=== PATIENT | female | born 1975 | race Hispanic/Latino ===

== ENCOUNTER 2019-04-26 15:12 | Emergency (ER) | payer SELFPAY ==
--- NOTE | 2019-04-26 16:00 | CT ---
CT Brain WO Con History: Injury. Fall. Comparison: None. Findings: No acute hemorrhage or infarct. No midline shift or mass effect. Ventricular size and extra -axial CSF spaces are normal. The calvarium is intact. Paranasal sinuses and mastoids are clear. Impression: No acute intracranial abnormality. Small left frontal soft tissue scalp contusion.
[2019-04-26] MEDS ORDERED: Acetaminophen 325 MG TAB ONE (16:02)
--- NOTE | 2019-04-26 16:06 | CT ---
CT CERVICAL SPINE WITHOUT CONTRAST: 04/26/19 HISTORY: Pain. Injury. Status post fall. FINDINGS: Straightening of the normal cervical lordosis may be due to patient position, muscle spasm or cervica l collar. Current study is not tailored to assess for ligamentous injury. No craniocervical dissocia tion. Lateral masses of C1 and C2 articulate appropriately. Intact odontoid process. Appropriate articulati on of the facets. Cervical spine vertebral body height is maintained. No fracture. Varying degrees of central canal stenosis and neural foraminal narrowing on the basis of degenerative change. However, no evidence of high grade central canal stenosis or high grade foraminal narrowing. Evaluation is limited by technique. Soft tissue neck structures, upper mediastinum, and lung apices are unremarkable. IMPRESSION: 1. No fracture. 2. Straightening of the normal cervical lordosis as above. If there is concern for ligamentous i njury, consider MRI. POS: OFF
== END 2019-04-26 16:44 | disposition home or self-care (01) ==
LOC: ERS 15:12
DX: S00.03XA Contusion of scalp, initial encounter (principal); W01.10XA Fall on same level from slipping, tripping and stumbling with subsequent striking against unspecified object, initial encounter
CPT/HCPCS: 70450; 72125

== ENCOUNTER 2020-06-14 10:26 | Emergency (ER) | payer OTHER ==
[2020-06-14 17:49] LABS: SARS-CoV-2 MS2 Positive; SARS-CoV-2 N Gene Negative; SARS-CoV-2 S Gene Negative; SARS-CoV-2 by NAA Not Detected (NotDetected); SARS-CoV-2 orf1ab Negative
== END 2020-06-14 10:48 | disposition home or self-care (01) ==
LOC: ERS 10:26
DX: R05 Cough (principal); Z20.828 Contact with and (suspected) exposure to other viral communicable diseases
CPT/HCPCS: 87635; 99283; U0003

== ENCOUNTER 2021-08-17 16:39 | Emergency (ER) | payer OTHER ==
[2021-08-17] MEDS ORDERED: Mag-Al 1200 mg/1200 mg/30 ML UDCUP ONE (17:31)
[2021-08-17] MEDS ORDERED: Lidocaine Viscous Sol 2% 15 ml UD Cup ONE (17:31)
[2021-08-17] MEDS ORDERED: Aspirin Chewable 81 MG TAB ONE (17:31)
[2021-08-17 17:36] LABS: #Basophils 0.1 thou/uL (0.0-0.2); #Eosinphils 0.5 thou/uL (0.0-0.7); #Lymphocytes 2.4 thou/uL (1.20-3.40); #Monocytes 0.5 thou/uL (0.11-0.59); #Neutrophils 4.7 thou/uL (1.40-6.50); %Basophils 0.7 % (0.0-1.0); %Eosinophils 5.8 % (0.0-10.0); %Lymphocytes 29.9 % (21.0-51.0); %Monocytes 5.7 % (0.0-10.0); %Neutrophils 57.9 % (42.0-75.0); Hemoglobin 14.1 g/dL (12.0-16.0); Mean Corpuscular Hemoglobin 32.8 pg (27.0-31.0); Mean Corpuscular Volume 93.7 fL (78.0-98.0); Platelet Count 211 thou/uL (130-400); RBC Distribution Width 11.1 % (11.5-14.5); Red Blood Cell (RBC) Count 4.29 mill/uL (4.20-5.40)
[2021-08-17 17:59] LABS: ALT (SGPT) 16 U/L (8-55); AST (SGOT) 19 U/L (5-34); Albumin 4.1 g/dL (3.5-5.0); Alkaline Phosphatase 92 U/L (40-110); Anion Gap 10 mmol/L (10-20); BUN (Urea Nitrogen) 11 mg/dL (7.0-18.7); Bilirubin, Total 0.5 mg/dL (0.2-1.2); Calc. Creatinine Clearance 0 mL/min (70-130); Calcium 9.2 mg/dL (7.8-10.44); Carbon Dioxide 25 mmol/L (22-29); Chloride 108 mmol/L (98-107); Globulin 2.9 g/dL (2.4-3.5); Glucose 94 mg/dL (70-105); Lipase 30 U/L (8-78); Potassium 3.6 mmol/L (3.5-5.1); Sodium 139 mmol/L (136-145)
[2021-08-17 19:26] LABS: Bilirubin Negative (Negative); Blood, Urine Negative (Negative); Clarity Clear (Clear); Glucose, Urine (Dipstick) Normal (Negative); Ketone, Urine Negative (Negative); Leukocyte Negative Leu/uL (Negative); Nitrite Negative (Negative); Protein, Urine (Dipstick) Negative (Neg-Trace); Specific Gravity, Urine 1.008 (1.002-1.036); Urobilinogen Normal mg/dL (Less than 2)
[2021-08-17 19:27] LABS: Pregnancy Test - Urine (BHCG) Negative (Negative); Pregu Control Background? CLEAR/WHITE (CLR/WHITE); Pregu Control Bar Appear? YES (CONTROL BAR); Specific Gravity 1.008 (1.002-1.036)
[2021-08-17 20:25] LABS: Troponin I Less than 0.010 ng/mL (< 0.028)
[2021-08-17] MEDS ORDERED: Sucralfate 1 GM/10 ML UDCUP ONE (20:43)
== END 2021-08-17 20:56 | disposition home or self-care (01) ==
LOC: ERS 16:39
DX: R07.2 Precordial pain (principal)
CPT/HCPCS: 36415; 71045; 80053; 81003; 81025; 83690; 84484; 85025; 93005

== ENCOUNTER 2023-02-12 10:49 | Outpatient (CLI) | payer MEDICAID | END 2023-02-12 10:50 | disposition home or self-care (01) | LOC: BICMAMMO 10:49 | PROVIDERS: ATTEND Advanced Practice Midwife | DX: Z12.31 Encounter for screening mammogram for malignant neoplasm of breast (principal) | CPT/HCPCS: 77067 ==

== ENCOUNTER 2023-06-18 12:09 | Emergency (ER) | payer MEDICAID, SELFPAY | END 2023-06-18 13:53 | disposition home or self-care (01) | LOC: ERS 12:09 | DX: U07.1 COVID-19 (principal) | CPT/HCPCS: 99283 ==

== ENCOUNTER 2023-09-03 19:05 | Emergency (ER) | payer SELFPAY ==
[2023-09-03 20:21] LABS: #Basophils 0.1 thou/uL (0.0-0.2); #Monocytes 1.1 thou/uL (0.11-0.59); #Neutrophils 14.6 thou/uL (1.40-6.50); %Basophils 0.4 % (0.0-1.0); %Eosinophils 0.1 % (0.0-10.0); %Lymphocytes 7.1 % (21.0-51.0); %Monocytes 6.3 % (0.0-10.0); %Neutrophils 85.5 % (42.0-75.0); Hematocrit 41.8 % (36.0-47.0); Hemoglobin 14.3 g/dL (12.0-16.0); Mean Corpuscular HGB CONC 34.2 g/dL (32.0-36.0); Mean Corpuscular Hemoglobin 31.8 pg (27.0-31.0); Mean Corpuscular Volume 92.9 fl (78.0-98.0); Mean Platelet Volume 11.1 fL (7.4-10.4); Platelet Count 187 10x3/uL (130-400); RBC Distribution Width 11.6 % (11.5-14.5)
[2023-09-03] MEDS ORDERED: Acetaminophen 500 MG TAB ONE (20:29)
[2023-09-03] MEDS ORDERED: Dexamethasone 10 MG/ML VIAL ONE (20:47)
[2023-09-03 21:19] LABS: Anion Gap 14 mmol/L (10-20); BUN (Urea Nitrogen) 9 mg/dL (7.0-18.7); Calc. Creatinine Clearance 0 mL/min (70-130); Carbon Dioxide 22 mmol/L (22-29); Chloride 103 mmol/L (98-107); Potassium 3.7 mmol/L (3.5-5.1); Sodium 135 mmol/L (136-145)
[2023-09-03 21:20] LABS: ALT (SGPT) 12 U/L (8-55); AST (SGOT) 16 U/L (5-34); Albumin 4.8 g/dL (3.5-5.0); Alkaline Phosphatase 83 U/L (40-110); Bilirubin, Total 1.3 mg/dL (0.2-1.2); Calcium 9.2 mg/dL (7.8-10.44); Estimated GFR 90; Globulin 2.6 g/dL (2.4-3.5); Glucose 136 mg/dL (70-105); Lipase 8 U/L (8-78); Protein, Total 7.4 g/dL (6.0-8.3)
[2023-09-03 21:23] LABS: Bilirubin Negative (Negative); Blood, Urine 1+ (Negative); CAUTI Indications for Culture Dysuria,urgency,freq; Clarity Turbid (Clear); Glucose, Urine (Dipstick) 30 mg/dL (Negative); Ketone, Urine Negative (Negative); Leukocyte 250 Leu/uL (Negative); Nitrite Negative (Negative); Protein, Urine (Dipstick) 50 mg/dL (Neg-Trace); Specific Gravity, Urine 1.044 (1.002-1.036); Urobilinogen Normal mg/dL (Less than 2); WBC/HPF 21-50 HPF (0-3)
[2023-09-03 21:25] LABS: Bacteria/HPF 1+ HPF (None Seen)
[2023-09-03 21:26] LABS: Urine Culture Reflex Yes Yes
== END 2023-09-04 00:01 | disposition home or self-care (01) ==
LOC: ERS 19:05
DX: J02.9 Acute pharyngitis, unspecified (principal); N39.0 Urinary tract infection, site not specified; Z20.822 Contact with and (suspected) exposure to COVID-19
CPT/HCPCS: 36415; 71045; 80053; 81001; 83690; 85025; 87081; 87086; 87430; 87635; 87804; 96361; 96374; J1100